=== PATIENT | female | born 1960 | race Hispanic/Latino ===

== ENCOUNTER 2017-06-30 01:10 | Emergency (ER) | payer OTHER, SELFPAY ==
[2017-06-30 01:39] LABS: APPEARANCE,URINE Cloudy (CLEAR); BILIRUBIN,URINE Negative (NEGATIVE); COLOR,URINE Yellow (YELLOW); GLUCOSE, URINE (UA) Negative (NEGATIVE); KETONES,URINE Negative (NEGATIVE); LEUKOCYTE ESTERASE ,URINE Small (NEGATIVE); NITRATE,URINE Negative (NEGATIVE); OCCULT BLOOD,URINE Negative (NEGATIVE); PROTEIN,URINE Negative (NEGATIVE)
[2017-06-30 01:45] LABS: BASOPHILS % (AUTO) 0.4 % (0.0-5.0); EOSINOPHILS % (AUTO) 1.3 % (0.0-8.0); HEMATOCRIT 39.3 % (36-48); LYMPHOCYTES % (AUTO) 15.6 % (21.0-51.0); MEAN CORPUSCULAR HEMOGLOBIN 29.1 pg (27.0-33.0); MEAN CORPUSCULAR HGB CONC 32.6 g/dL (32.0-36.0); MEAN CORPUSCULAR VOLUME 89.1 fL (79-99); MONOCYTES % (AUTO) 5.2 % (3.0-13.0); NEUTROPHILS % (AUTO) 77.5 % (40.0-77.0); PLATELET COUNT (AUTO) 180 K/uL (130-400); RED BLOOD CELL COUNT(AUTO) 4.41 MIL/uL (4.00-5.50); RED CELL DISTRIBUTION WIDTH 14.4 % (11.0-15.5); WHITE BLOOD COUNT (AUTO) 10.1 K/uL (4.8-10.8)
[2017-06-30 01:55] LABS: CREATININE 0.9 mg/dL (0.5-1.5); POTASSIUM 3.5 mmol/L (3.5-5.1)
[2017-06-30 01:55] LABS: AMORPHOUS SEDIMENT,UR Moderate /LPF (None Seen); BACTERIA,URINE Few /HPF (None Seen); RBC,URINE 0-1 /HPF (0-1)
[2017-06-30 02:00] LABS: ALBUMIN 3.8 g/dL (3.5-5.0); BILIRUBIN,TOTAL 0.3 mg/dL (0.2-1.0); TOTAL PROTEIN, SERUM 7.5 g/dL (6.0-8.3)
[2017-06-30] MEDS ORDERED: MAG HYDROX/AL HYDROX/SIMETH ES 30 ML SUSP UDCUP ONE (02:07)
[2017-06-30] MEDS ORDERED: LIDOCAINE HCL 2% VISCOUS 15 ML UDCUP ONE (02:07)
[2017-06-30] MEDS ORDERED: HYOSCYAMINE SULFATE 0.125 MG TAB.SUBL SL ONE ×2 (02:14→02:33)
[2017-06-30] MEDS ORDERED: ONDANSETRON HCL 4 MG/2 ML VIAL ONE ×2 (02:14→02:33)
== END 2017-06-30 03:04 | disposition home or self-care (01) ==
LOC: EDH 01:10
DX: K52.9 Noninfective gastroenteritis and colitis, unspecified (principal)
CPT/HCPCS: 36415; 80053; 81001; 82150; 83690; 84484; 85025; 93005; 96374; 99285; J2405 ×2

== ENCOUNTER 2025-02-19 18:20 | Emergency (ER) | payer OTHER, SELFPAY ==
[~2025-02-19] VITALS: Ht 149.9 cm; Wt 93.0 kg
[2025-02-19 19:05] LABS: IMMATURE GRANULOCYTE ABSOLUTE 0.05 K/uL (0-1); NUCLEATED RED BLOOD CELLS 0.0 % (0.0-0.19); PLATELET COUNT (AUTO) 275 K/uL (130-400); RED BLOOD CELL COUNT(AUTO) 4.22 MIL/uL (4.00-5.50); RED CELL DISTRIBUTION WIDTH 13.8 % (11.0-15.5); WHITE BLOOD COUNT (AUTO) 8.1 K/uL (4.8-10.8)
[2025-02-19 19:10] LABS: CREATININE 0.8 mg/dL (0.5-1.0); GLOMERULAR FILTR. RATE CALC 81.0 mL/min (>90); GLUCOSE,RANDOM 112.0 mg/dL (70-105); SODIUM SERUM 138.0 mmol/L (136-145); UREA NITROGEN, BLOOD 11.0 mg/dL (7-18)
[2025-02-19] MEDS: OXYmetazoline HCL SPRAY 100 SPRAYS/15 ML BOTTLE EN ONE (19:30)
[2025-02-19] MEDS ORDERED: OXYM30SP27 NS (19:39)
--- NOTE | 2025-02-19 19:41 | ERN ---
General Chief Complaint: Shortness of Breath Stated Complaint: SOB Time Seen by MD: 18:24 Time Seen by Midlevel: 18:24 Source: patient History of Present Illness Initial Comments The patient is a 64-year-old female presenting to the emergency department for evaluation of shortness of breath. Patient states she has an increase in nasal congestion and attributes her shortness breath pubis. She was recently diagnosed with COVID-19 and was treated for it proximally two weeks ago. She does report feeling improved with the only lingering symptom is nasal congestion that is worse at night. Allergies: Coded Allergies: No Known Drug Allergies (Unverified Allergy, Unknown, 02/19/25) Past Medical History Past Medical History: Hypertension, Other Medical History Other: cataracts Past Surgical History: Hysterectomy ROS Dictation CONSTITUTIONAL: Negative except for HPI HEAD/FACE: Negative except for HPI EENT: Negative except for HPI RESPIRATORY: Negative except for HPI GASTROINTESTINAL/ABDOMINAL: Negative except for HPI GENITOURINARY: Negative except for HPI MUSCULOSKELETAL: Negative except for HPI INTEGUMENTARY: Negative except for HPI NEUROLOGICAL/PSYCH: Negative except for HPI HEMATOLOGIC/LYMPHATIC: Negative except for HPI All Systems Negative, Except as noted above. 13 point review of systems assessed and all negative except for above. Physical Exam Physical Exam Dictation Vital Signs reviewed General Appearance: Alert, oriented x 3, no acute distress, well developed, nourished. Head and Face: non-traumatic. Eyes: PERRL, pink conjunctivas, eyelid no trauma, anterior chamber with arcus senilis. Ears: Pinnas intact and no signs of trauma or erythema ear canals clear and no discharge TM no erythema Nose: No discharge, no bleeding. Oropharynx: Mouth normal, tongue pink, pharynx clear,no erythema, tonsils no exudates, no abscesses noted, mucous membrane moist Neck: Supple, non-tender, no thyromegaly, no masses, no JVD, no bruits Breast:Deferred Chest:No tenderness, no crepitus, no paradoxical movement, no retractions Lungs:Clear, well-ventilated, symmetric, no rales, no wheezing, no rhonchi, no stridor, good breath sounds bilaterally Heart: Regular rate, regular rhythm, no murmur, no gallops Vascular: no peripheral edema, Abdomen: Soft, positive bowel sounds, nondistended, no guarding, nontender, no rebound, no masses no hepatomegaly, no splenomegaly, no Caceres's sign, no hernias. Rectal: Deferred Genital: Deferred Neurological: Normal speech, motor function intact, sensory function intact Musculoskeletal: Neck nontender, full range of motion, back nontender, full ra nge of motion, Extremities: nontender, full range of motion Skin: Color pink, dry, no turgor, no rash, no lacerations, no abrasions, no contusions. Lymphatic: Deferred Results Laboratory and Microbiology Lab and Micro Result Laboratory Tests Test 02/19/25 18:46 White Blood Count 8.1 K/uL (4.8-10.8) Red Blood Count 4.22 MIL/uL (4.00-5.50) Hemoglobin 12.0 g/dL (12.0-16.0) Hematocrit 37.9 % (36-48) Mean Corpuscular Volume 89.8 fL (79-99) Mean Corpuscular Hemoglobin 28.4 pg (27.0-33.0) Mean Corpuscular Hemoglobin Concent 31.7 g/dL (32.0-36.0) L Red Cell Distribution Width 13.8 % (11.0-15.5) Platelet Count 275 K/uL (130-400) Mean Platelet Volume 9.2 fL (7.5-10.5) Immature Granulocyte % (Auto) 0.6 % (0-1) Neutrophils (%) (Auto) 71.7 % (40.0-77.0) Lymphocytes (%) (Auto) 17.9 % (21.0-51.0) L Monocytes (%) (Auto) 7.7 % (3.0-13.0) Eosinophils (%) (Auto) 1.7 % (0.0-8.0) Basophils (%) (Auto) 0.4 % (0.0-5.0) Neutrophils # (Auto) 5.8 K/uL (1.8-7.7) Lymphocytes # (Auto) 1.5 K/uL (1.0-4.8) Monocytes # (Auto) 0.6 K/uL (0.1-1.0) Eosinophils # (Auto) 0.14 K/uL (0.00-0.70) Basophils # (Auto) 0.03 K/uL (0.00-0.20) Absolute Immature Granulocyte (auto 0.05 K/uL (0-1) Nucleated Red Blood Cells 0.0 % (0.0-0.19) Sodium Level 138 mmol/L (136-145) Potassium Level 3.8 mmol/L (3.5-5.1) Chloride Level 101 mmol/L (101-111) Carbon Dioxide Level 30 mmol/L (21-32) Blood Urea Nitrogen 11 mg/dL (7-18) Creatinine 0.8 mg/dL (0.5-1.0) Glomerular Filtration Rate Calc 81 mL/min (>90) Random Glucose 112 mg/dL (70-105) H Total Calcium 8.9 mg/dL (8.5-10.1) Troponin I High Sensitivity 5 ng/L (4-50) MDM MDM: Differential diagnosis: Pneumonia, bronchitis, nasal congestion There are no social concerns with this patient. Prescription drug management Prescriptions will include: Afrin Medical management and examination interpretation discussions were had by me with other qualified healthcare professionals as indicated for the patient's care. ED Course Orders Procedure Category Date Status Time Cbc With Differential LAB 02/19/25 In Process 18:37 Basic Metabolic Panel LAB 02/19/25 Complete 18:37 B-Type Natriuretic LAB 02/19/25 In Process Peptide 18:37 Troponin I High LAB 02/19/25 Complete Sensitivity 18:37 Chest 1vw RAD 02/19/25 Taken 18:37 Oxymetazoline Hcl PHA 02/19/25 Complete [place] (Afrin) 19:00 Current Medications Medications (Trade) Dose Ordered Sig/Radha Route PRN Reason Start Time Stop Time Status Last Admin Dose Admin Oxymetazoline HCl (AFrin) 1 sprays ONCE ONCE EN 02/19/25 19:00 02/19/25 19:01 DC Vital Signs Date Time Temp Pulse Resp B/P (MAP) Pulse Ox O2 Delivery O2 Flow Rate FiO2 02/19/25 18:26 98.6 67 20 136/60 98 Room Air* 0 21 02/19/25 18:23 98.6 67 20 136/60 98 Room Air 0 DX & DISP Disposition: Discharge Departure Impression: Primary Impression: Nasal congestion Condition: Stable Scripts Oxymetazoline HCl (Afrin) 0.05 % [place] 1 SPRAY NS BID for 3 Days, #15 ML 0 Refills Prov: YODIT CROCKER 02/19/25 Additional Instructions: Your blood work today is stable. Given you a prescription for Afrin nasal spray chair relieving nasal congestion. You may use 2-3 sprays in each nostril every 10-12 hours as needed for congestion. Please do not use this spray for more than three consecutive days. Longer use can cause your congestion to worsened. Follow up with your primary care doctor in 2-3 days for repeat evaluation. Referrals: AXEL FORD M.D. (PCP) Time of Disposition: 19:39 I have reviewed the case, and I agree with, Diagnosis and Plan I performed the substantive portion of the visit. I have reviewed and personally made and approve the management plan that is documented in the note by myself or the [facility]. I acknowledge for responsibility for the patient's management plan. YODIT CROCKER Feb 19, 2025 19:41
[2025-02-19 19:44] VITALS: BP 136/60; PULSE 67; RESP 20; TEMP 98.6; O2SAT 98
--- NOTE | 2025-02-19 19:49 | HMCIMG ---
EXAM: CR Chest, 1 View. CLINICAL HISTORY: sob COMPARISON: None provided. FINDINGS: LUNGS: There is no mass, infiltrate, or acute pulmonary abnormality. PLEURAL SPACES: No evidence of pleural effusion or pneumothorax. MEDIASTINUM: Cardiac size and mediastinal contours within normal limits. BONES: No acute osseous abnormality. IMPRESSION: No acute cardiopulmonary pathology is evident. /Marshall
== END 2025-02-19 19:44 | disposition home or self-care (01) ==
LOC: EDH 18:20
DX: R09.81 Nasal congestion (principal); I10 Essential (primary) hypertension; Z86.16 Personal history of COVID-19; Z90.710 Acquired absence of both cervix and uterus
CPT/HCPCS: 36415; 71045; 80048; 83880; 84484; 85025; 99284

== ENCOUNTER 2025-05-10 03:18 | Emergency (ER) | payer OTHER ==
[~2025-05-10] VITALS: Ht 149.9 cm; Wt 90.7 kg
[~2025-05-10 03:18] MED LIST: OXYM30SP27 NS
--- NOTE | 2025-05-10 03:30 | NUR ---
PT CARE ASSUMED AT THIS TIME
--- NOTE | 2025-05-10 03:32 | ERN ---
ED Note History of Present Illness Stated Complaint: RT SIDED ABD PAIN Chief Complaint: Abdominal Pain Time Seen by MD: 03:20 Dictation: Patient is a 64-year-old female with a past medical history of hypertension who presented to the ER complaining of left side abdominal pain started 2 hours prior to presentation to this emergency department. The pain was associated with the nausea , patient provoke a vomiting also. Also she mentioned some loose stools. Reports eating chicken with a barbecue sauce for dinner from a local fast food restaurant. Allergies: Coded Allergies: No Known Drug Allergies (Unverified Allergy, Unknown, 02/19/25) Home Meds Active Scripts Ondansetron (Ondansetron Odt) 4 Mg Tab.rapdis, 4 MG PO Q6HPRN for nausea, #7 TAB Prov:KAITLIN SLAUGHTER MD 05/10/25 Ibuprofen (Ibuprofen) 400 Mg Tablet, 1 TAB PO Q6HPRN PRN for pain or fever for 5 Days, #20 TAB 0 Refills Prov:KAITLIN SLAUGHTER MD 05/10/25 Oxymetazoline HCl (Afrin) 0.05 % [place], 1 SPRAY NS BID for 3 Days, #15 ML 0 Refills Prov:YODIT CROCKER 02/19/25 Past Medical History Past Medical History: Hypertension, Other Additional Past Medical Hx: cataracts Surgical History: Hysterectomy Review of System Dictation NEGATIVE EXCEPT PER HPI Constitutional: Negative for fever,chills, and weight loss Eyes: Negative for injury, pain,redness, and discharge ENT: Negative for injury,pain or swelling Cardiovascular: denies chest pain, palpitations, and edema Respiratory: Negative for shortness of breath, cough, and wheezing, Abdomen/GI: Abdominal pain, nausea and vomiting reports Back: Negative for injury and pain : Negative for injury, bleeding and discharge MS/Extremity: Negative for injury and deformity Skin: Negative for rash, and discoloration Neuro: Negative for headache, weakness, numbness, tingling, and seizure Psych: Negative for suicide ideation, homicidal ideation, and hallucinations Initial Vital Sign VS Vital Signs Date Time Temp Pulse Resp B/P (MAP) Pulse Ox O2 Delivery O2 Flow Rate FiO2 05/10/25 03:19 96.6 69 16 142/57 99 Room Air 05/10/25 03:50 0 21 Physical Exam Dictation General: awake, alert, NAD Head/Face: Normocephalic, atraumatic Eyes: PERRL, EOMI, vision at baseline ENT: oral cavity clear, TMs clear, no signs of infection Neck: Trachea midline, supple, no nuchal rigidity Cardiovascular: RRR, normal S1/S2, No MRGs, no JVD Respiratory: CTAB, no respiratory distress, No rales or wheezes Abdomen: Soft , no tender Skin: Warm, dry, normal turgor, no rash MS/Extremity: Pulses equal, no cyanosis, neurovascular intact, FROM Neuro: COAx4, GCS 15, strength 5/5, CN 2-12 intact, normal cerebellar exam, normal gait, Psych: Normal behavior, mood, and affect normal Results (Laboratory/Radiology) Laboratory/Radiology Laboratory Tests Test 05/10/25 03:40 05/10/25 05:32 White Blood Count 6.9 K/uL (4.8-10.8) Red Blood Count 3.76 MIL/uL (4.00-5.50) L Hemoglobin 10.7 g/dL (12.0-16.0) L Hematocrit 34.2 % (36-48) L Mean Corpuscular Volume 91.0 fL (79-99) Mean Corpuscular Hemoglobin 28.5 pg (27.0-33.0) Mean Corpuscular Hemoglobin Concent 31.3 g/dL (32.0-36.0) L Red Cell Distribution Width 14.0 % (11.0-15.5) Platelet Count 229 K/uL (130-400) Mean Platelet Volume 9.5 fL (7.5-10.5) Immature Granulocyte % (Auto) 0.3 % (0-1) Neutrophils (%) (Auto) 74.5 % (40.0-77.0) Lymphocytes (%) (Auto) 14.3 % (21.0-51.0) L Monocytes (%) (Auto) 7.7 % (3.0-13.0) Eosinophils (%) (Auto) 2.6 % (0.0-8.0) Basophils (%) (Auto) 0.6 % (0.0-5.0) Neutrophils # (Auto) 5.1 K/uL (1.8-7.7) Lymphocytes # (Auto) 1.0 K/uL (1.0-4.8) Monocytes # (Auto) 0.5 K/uL (0.1-1.0) Eosinophils # (Auto) 0.18 K/uL (0.00-0.70) Basophils # (Auto) 0.04 K/uL (0.00-0.20) Absolute Immature Granulocyte (auto 0.02 K/uL (0-1) Nucleated Red Blood Cells 0.0 % (0.0-0.19) Sodium Level 140 mmol/L (136-145) Potassium Level 4.2 mmol/L (3.5-5.1) Chloride Level 105 mmol/L (101-111) Carbon Dioxide Level 24 mmol/L (21-32) Blood Urea Nitrogen 19 mg/dL (7-18) H Creatinine 1.0 mg/dL (0.5-1.0) Glomerular Filtration Rate Calc 62 mL/min (>90) Random Glucose 132 mg/dL (70-105) H Total Calcium 8.7 mg/dL (8.5-10.1) Total Bilirubin 0.3 mg/dL (0.2-1.0) Aspartate Amino Transf (AST/SGOT) 20 U/L (10-37) Alanine Aminotransferase (ALT/SGPT) 21 U/L (12-78) Alkaline Phosphatase 102 U/L (50-136) Total Protein 6.9 g/dL (6.0-8.3) Albumin 3.2 g/dL (3.5-5.0) L Lipase 32 U/L (16-77) Urine Color COLORLESS (YELLOW) Urine Appearance CLEAR (CLEAR) Urine pH 7.0 (5.0-8.0) Urine Specific [place] 1.035 (1.001-1.031) Urine Protein NEGATIVE mg/dL (NEGATIVE) Urine Glucose (UA) NEGATIVE mg/dL (NEGATIVE) Urine Ketones NEGATIVE mg/dL (NEGATIVE) Urine Occult Blood MODERATE (NEGATIVE) H Urine Nitrate NEGATIVE (NEGATIVE) Urine Bilirubin NEGATIVE mg/dL (NEGATIVE) Urine Urobilinogen 0.2 mg/dL (0.2-1.0) Urine Leukocyte Esterase 75 [place]/uL (NEGATIVE) H Urine RBC 11-25 /HPF (0-1) H Urine WBC 2-5 /HPF (0-1) H Urine Bacteria None /HPF (None Seen) ED Course ED Course Orders Procedure Category Date Status Time Cbc With Differential LAB 05/10/25 Complete 03:26 Comprehensive LAB 05/10/25 Complete Metabolic Panel 03:26 Urinalysis Profile LAB 05/10/25 Uncollected 03:26 Ondansetron 4mg Inj PHA 05/10/25 Complete (Zofran 4mg Inj) 03:30 Mag/Alum/Simeth 30ml PHA 05/10/25 Complete (Maalox Plus 30ml) 03:30 Famotidine 20mg Vial PHA 05/10/25 Complete (Pepcid 20mg Vial) 03:30 Lipase LAB 05/10/25 Complete 03:26 0.9%Nacl 1000ml (Ns PHA 05/10/25 Complete 1000ml) 04:00 Ct Abdomen/Pelvis CT 05/10/25 Resulted W/Contrast 03:34 Iohexol (Omnipaque) PHA 05/10/25 Complete 04:11 Tamsulosin Hcl PHA 05/10/25 Complete (Flomax) 06:00 Ketorolac PHA 05/10/25 Complete Tromethamine 15mg/Ml 06:00 Urinalysis Profile LAB 05/10/25 Complete 05:48 Culture Urine ALFREDO 05/10/25 Logged 06:37 Current Medications Medications (Trade) Dose Ordered Sig/Radha Route PRN Reason Start Time Stop Time Status Last Admin Dose Admin Al Hydroxide/Mg Hydroxide (MAALox PLUS 30ML) 30 ml ONCE ONCE PO 05/10/25 03:30 05/10/25 03:31 DC 05/10/25 03:58 Famotidine (Pepcid 20mg Vial) 20 mg ONCE ONCE IV 05/10/25 03:30 05/10/25 03:31 DC 05/10/25 03:58 Iohexol (Omnipaque) 75 ml STK-MED ONCE IV 05/10/25 04:11 05/10/25 04:11 DC Ketorolac Tromethamine (toRADol) 15 mg ONCE ONCE IV 05/10/25 06:00 05/10/25 06:01 DC 05/10/25 06:03 Ondansetron HCl (zoFRAN 4MG INJ) 4 mg ONCE ONCE IVP 05/10/25 03:30 05/10/25 03:31 DC 05/10/25 03:59 Sodium Chloride 1,000 ml @ 0 mls/hr ONCE ONCE IV 05/10/25 04:00 05/10/25 04:01 DC 05/10/25 04:00 Tamsulosin HCl (FloMAX) 0.4 mg ONCE ONCE PO 05/10/25 06:00 05/10/25 06:01 DC 05/10/25 06:03 Vital Signs Date Time Temp Pulse Resp B/P (MAP) Pulse Ox O2 Delivery O2 Flow Rate FiO2 05/10/25 06:22 75 16 129/52 100 Room Air* 0 21 05/10/25 04:45 70 15 121/76 99 Room Air* 0 21 05/10/25 03:50 98.2 75 12 136/78 100 Room Air* 0 21 05/10/25 03:19 96.6 69 16 142/57 99 Room Air Medical Decision Making MDM Patient presented with abdominal pain to the left side, she also reports nausea, vomiting x1 Diverticulitis, possible Food poison, possible Kidney stone, possible Laboratory and CT imaging abdomen was ordered. Findings consistent with a left ureteropelvic 0.2 cm stone, mild hydronephrosis REASON: diverticulitis, abdominal pain? ORDERING PHYSICIAN: KAITLIN SLAUGHTER MD PROCEDURE: ABD PEL W - CT ABDOMEN/PELVIS W/CONTRAST EXAM: CT Abdomen and Pelvis with IV contrast CLINICAL HISTORY: Pain. Diverticulitis. TECHNIQUE: Postcontrast thin collimated axial CT images of the abdomen and pelvis were obtained with sagittal and coronal reformatted images also submitted. CT scan is done according to ALARA (As Low As Reasonably Achievable). COMPARISON: None. FINDINGS: The included lungs are clear. The included lungs are clear. Mildly hydropic gallbladder with diffusely significant gallbladder wall. No radiodense gallstone is evident. Mild fatty liver. No focal abnormality within the pancreas, spleen, or adrenals. 0.2 cm obstructive calculus at the left vesicoureteric junction with mild proximal hydroureteronephrosis, perinephric, and periureteric inflammatory changes. There are a few mildly reactive left-sided retroperitoneal lymph nodes. Unremarkable right kidney. Unremarkable urinary bladder. Presumed post-hysterectomy status. No obvious bowel wall thickening, dilatation, or obstruction. Unremarkable appendix. Mild calcific atherosclerotic disease in the abdominal aorta and its branches. No ascites or pneumoperitoneum. No acute bony abnormality is evident. Degenerative osseous changes. Grade 1 degenerative anterolisthesis of L4 on L5 and L5 on S1. IMPRESSIONS: 0.2 cm obstructive calculus at the left vesicoureteric junction with mild proximal hydroureteronephrosis, perinephric, and periureteric inflammatory changes. There are a few mildly reactive retroperitoneal lymph nodes on the left side. No acute diverticulitis is evident. Very small stone, like the patient he will pass. Ordered ketorolac IV once Ordered Flomax Patient to follow up with the PCP, we will provide urologist contact, Patient has received recommendation to drink plenty amount of water. DX & DISP Disposition: Discharge Departure Impression: Primary Impression: Left nephrolithiasis Additional Impressions: Hydronephrosis, UTI (urinary tract infection) Condition: Stable Scripts Cephalexin Monohydrate (Keflex) 500 Mg Cap 1 CAP PO QID for 7 Days, #28 CAP 0 Refills Prov: KAITLIN SLAUGHTER MD 05/10/25 Ondansetron (Ondansetron Odt) 4 Mg Tab.rapdis 4 MG PO Q6HPRN for nausea, #7 TAB Prov: KAITLIN SLAUGHTER MD 05/10/25 Ibuprofen (Ibuprofen) 400 Mg Tablet 1 TAB PO Q6HPRN PRN for pain or fever for 5 Days, #20 TAB 0 Refills Prov: KAITLIN SLAUGHTER MD 05/10/25 Referrals: AXEL FORD M.D. (PCP) KAITLIN SLAUGHTER MD May 10, 2025 03:32
[2025-05-10 03:56] LABS: IMMATURE GRANULOCYTE ABSOLUTE 0.02 K/uL (0-1); NUCLEATED RED BLOOD CELLS 0.0 % (0.0-0.19); PLATELET COUNT (AUTO) 229 K/uL (130-400); RED BLOOD CELL COUNT(AUTO) 3.76 MIL/uL (4.00-5.50); RED CELL DISTRIBUTION WIDTH 14.0 % (11.0-15.5); WHITE BLOOD COUNT (AUTO) 6.9 K/uL (4.8-10.8)
[2025-05-10] MEDS: FAMOTIDINE 20MG VIAL IV ONE (03:58)
[2025-05-10] MEDS: MAG/ALUM/SIMETH 30 ML UDCUP PO ONE (03:58)
[2025-05-10] MEDS: 0.9%NACL 1000ML 1,000 ML IV ONE (04:00)
[2025-05-10 04:09] LABS: CREATININE 1.0 mg/dL (0.5-1.0); GLOMERULAR FILTR. RATE CALC 62.0 mL/min (>90); GLUCOSE,RANDOM 132.0 mg/dL (70-105); SODIUM SERUM 140.0 mmol/L (136-145); UREA NITROGEN, BLOOD 19.0 mg/dL (7-18)
[2025-05-10] MEDS ORDERED: IOHEXOL-350 75 ML VIAL IV ONE (04:11)
[2025-05-10 04:26] LABS: ASPARTATE AMINOTRANSFERASE 20.0 U/L (10-37); TOTAL PROTEIN, SERUM 6.9 g/dL (6.0-8.3)
--- NOTE | 2025-05-10 05:30 | HMCIMG ---
EXAM: CT Abdomen and Pelvis with IV contrast CLINICAL HISTORY: Pain. Diverticulitis. TECHNIQUE: Postcontrast thin collimated axial CT images of the abdomen and pelvis were obtained with sagittal and coronal reformatted images also submitted. CT scan is done according to ALARA (As Low As Reasonably Achievable). COMPARISON: None. FINDINGS: The included lungs are clear. The included lungs are clear. Mildly hydropic gallbladder with diffusely significant gallbladder wall. No radiodense gallstone is evident. Mild fatty liver. No focal abnormality within the pancreas, spleen, or adrenals. 0.2 cm obstructive calculus at the left vesicoureteric junction with mild proximal hydroureteronephrosis, perinephric, and periureteric inflammatory changes. There are a few mildly reactive left-sided retroperitoneal lymph nodes. Unremarkable right kidney. Unremarkable urinary bladder. Presumed post-hysterectomy status. No obvious bowel wall thickening, dilatation, or obstruction. Unremarkable appendix. Mild calcific atherosclerotic disease in the abdominal aorta and its branches. No ascites or pneumoperitoneum. No acute bony abnormality is evident. Degenerative osseous changes. Grade 1 degenerative anterolisthesis of L4 on L5 and L5 on S1. IMPRESSIONS: 0.2 cm obstructive calculus at the left vesicoureteric junction with mild proximal hydroureteronephrosis, perinephric, and periureteric inflammatory changes. There are a few mildly reactive retroperitoneal lymph nodes on the left side. No acute diverticulitis is evident. /Kriss
[2025-05-10] MEDS ORDERED: ONDA-243 PO (05:51)
[2025-05-10] MEDS ORDERED: IBUP-2076 PO (05:51)
[2025-05-10 06:19] LABS: APPEARANCE,URINE CLEAR (CLEAR); GLUCOSE, URINE (UA) NEGATIVE (NEGATIVE); LEUKOCYTE ESTERASE ,URINE 75 Leu/uL (NEGATIVE); NITRATE,URINE NEGATIVE (NEGATIVE); OCCULT BLOOD,URINE MODERATE (NEGATIVE)
[2025-05-10 06:37] LABS: ADD UA MICROSCOPIC YES
[2025-05-10] MEDS ORDERED: CEPH500B PO (07:01)
[2025-05-10 07:10] VITALS: BP 124/59; PULSE 75; RESP 16; TEMP 98; O2SAT 100
== END 2025-05-10 07:15 | disposition home or self-care (01) ==
LOC: EDH 03:18
DX: N13.2 Hydronephrosis with renal and ureteral calculous obstruction (principal); N39.0 Urinary tract infection, site not specified; R11.2 Nausea with vomiting, unspecified; I10 Essential (primary) hypertension; Z90.710 Acquired absence of both cervix and uterus
CPT/HCPCS: 99285; 74177; 96374; 96375; 96361; 80053; 83690; 85025; 87086; 81001; 36415; J1885; J1308; J7030; J2405; Q9967

== ENCOUNTER 2025-05-27 02:20 | Emergency (ER) | payer OTHER ==
[~2025-05-27] VITALS: Ht 149.9 cm; Wt 90.3 kg
--- NOTE | 2025-05-27 02:36 | NUR ---
PT CARE ASSUMED AT THIS TIME
--- NOTE | 2025-05-27 02:50 | ERN ---
General Chief Complaint: Painful Urination Stated Complaint: C/O BURNING WHEN VOIDING W/FREQUENT URINATION Time Seen by MD: 02:22 History of Present Illness Initial Comments 64-year-old female history of hypertension here for evaluation of urinary frequency and dysuria. Symptoms started 3 hours ago. She was concerned about the symptoms thus she decided to come to the emergency room for evaluation. She was last on antibiotics about 2-1/2 weeks ago when she had a kidney stone and was admitted to the hospital. She states that she does not have any abdominal pain or colicky flank pain when she had the last kidney stone. No fever no cough no shortness a breath and nausea vomiting diarrhea. No chest pain or palpitations Allergies: Coded Allergies: No Known Drug Allergies (Unverified Allergy, Unknown, 02/19/25) Home Meds Active Scripts Cephalexin Monohydrate (Keflex) 500 Mg Cap, 1 CAP PO QID for 7 Days, #28 CAP 0 Refills Prov:KAITLIN SLAUGHTER MD 05/10/25 Ondansetron (Ondansetron Odt) 4 Mg Tab.rapdis, 4 MG PO Q6HPRN for nausea, #7 TAB Prov:KAITLIN SLAUGHTER MD 05/10/25 Ibuprofen (Ibuprofen) 400 Mg Tablet, 1 TAB PO Q6HPRN PRN for pain or fever for 5 Days, #20 TAB 0 Refills Prov:KAITLIN SLAUGHTER MD 05/10/25 Oxymetazoline HCl (Afrin) 0.05 % [place], 1 SPRAY NS BID for 3 Days, #15 ML 0 Refills Prov:YODIT CROCKER 02/19/25 Past Medical History Past Medical History: Hypertension Medical History Other: cataracts Past Surgical History: Other Genitourinary: (+) dysuria, (+) frequency Review of Systems: was completed, & the rest were negative. Physical Exam Physical Exam Dictation GENERAL APPEARANCE NAD, activity normal for age, well developed/ well nourished, no cyanosis, pallor, or diaphoresis. EYES lids/conjunctiva normal. EARS/NOSE/THROAT Mucous membranes moist, nares normal, lips/teeth normal uvula midline without oral pharyngeal erythema, exudate or swelling TMs normal bilaterally. No lymphangitis/lymphedema. HEAD/NECK normocephalic atraumatic, no facial trauma, neck is supple. RESPIRATORY respiratory effort normal, speaks in full sentences, no tripod position, no accessory muscle use. Lungs clear to auscultation without rhonchi, wheezes, rales CARDIAC Regular rate and rhythm, no edema. ABDOMINAL Soft, ND/NT. No evidence of fluid wave. No pulsatile masses on exam, rebound tenderness, Caceres sign or pain over Mcburney's point. MUSCLES/EXTREMITIES No abnormal range of motion, no swelling. SKIN Warm, pink and dry. No rashes, dermatoses, petechiae or lesions. NEUROLOGICAL Speech is clear and appropriate. Normal level of consciousness. Gait and coordination are normal. 5/5 strength in all extremities. PSYCH Normal mood and affect. Judgement/competence is appropriate Results Laboratory and Microbiology Lab and Micro Result Laboratory Tests Test 05/27/25 02:32 Urine Color COLORLESS (YELLOW) Urine Appearance CLEAR (CLEAR) Urine pH 6.5 (5.0-8.0) Urine Specific [place] 1.003 (1.001-1.031) Urine Protein NEGATIVE mg/dL (NEGATIVE) Urine Glucose (UA) NEGATIVE mg/dL (NEGATIVE) Urine Ketones NEGATIVE mg/dL (NEGATIVE) Urine Occult Blood NEGATIVE (NEGATIVE) Urine Nitrate NEGATIVE (NEGATIVE) Urine Bilirubin NEGATIVE mg/dL (NEGATIVE) Urine Urobilinogen 0.2 mg/dL (0.2-1.0) Urine Leukocyte Esterase NEGATIVE [place]/uL MDM 64-year-old female here for evaluation of dysuria/frequency. We will get urine studies and treat appropriately. Disposition pending results of urinary studies. ED Course Orders Procedure Category Date Status Time Urinalysis Profile LAB 05/27/25 Complete 02:27 Vital Signs Date Time Temp Pulse Resp B/P (MAP) Pulse Ox O2 Delivery O2 Flow Rate FiO2 05/27/25 02:39 97.0 74 18 143/99 97 Room Air* 0 21 05/27/25 02:21 97.0 81 20 137/62 99 Room Air DX & DISP Disposition: Discharge Departure Impression: Primary Impression: Urinary frequency Condition: Stable Referrals: AXEL FORD M.D. (PCP) CLAIRE TOLBERT MD May 27, 2025 02:50
[2025-05-27 02:51] LABS: APPEARANCE,URINE CLEAR (CLEAR); GLUCOSE, URINE (UA) NEGATIVE (NEGATIVE); LEUKOCYTE ESTERASE ,URINE NEGATIVE Leu/uL (NEGATIVE); NITRATE,URINE NEGATIVE (NEGATIVE); OCCULT BLOOD,URINE NEGATIVE (NEGATIVE)
[2025-05-27 02:52] LABS: ADD UA MICROSCOPIC NO
--- NOTE | 2025-05-27 03:03 | NUR ---
BLADDER SCAN PREFORMED AT BEDSIDE BY ED RN ORDERED BY ED MD TOLBERT. NO MLS OF URINE SEEN ON SCAN. ED MD MADE AWARE.
[2025-05-27 03:08] VITALS: BP 143/60; PULSE 67; RESP 15; TEMP 97; O2SAT 99
== END 2025-05-27 03:09 | disposition home or self-care (01) ==
LOC: EDH 02:20
DX: R35.0 Frequency of micturition (principal); I10 Essential (primary) hypertension; Z87.442 Personal history of urinary calculi
CPT/HCPCS: 81003; 99284